=== PATIENT | female | born 2000 | race Caucasian/White ===

== ENCOUNTER 2022-12-28 02:34 | Inpatient (IN) | payer OTHER ==
[~2022-12-28] VITALS: Ht 160 cm; Wt 92.7 kg
[2022-12-28] VITALS (32 sets, daily range): BP systolic 106–142; BP diastolic 52–92; PULSE 75–123; TEMP 98.3–99.8
[~2022-12-28 02:34] MED LIST: ASPIRIN 81M81 MG/TA2 PO; PRENATAL
--- NOTE | 2022-12-28 02:35 | NUR ---
PT AMBULATED TO LR4 WITH SPOUSE. PT COMPLAINT OF SROM. AMNIOTRACE POSITIVE. SROM AT 0030. THE PATIENT STATES THAT SHE WAS NOT HAVING ANY CONTRACTIONS PRIOR TO HER WATER BREAKING. SHE DENIES VAGINAL BLEEDING. PATIENT CHANGED INTO CLEAN GOWN, VOIDED AND PLACED ON EFM AT THIS TIME. NOTIFIED PHYSICIAN OF THE PATIENTS ARRIVAL, SEE PHYSICIAN NOTIFICATION. CATEGORY 1 TRACING OF HEART TONES. CONTRACTIONS EVERY 4-6 MINUTES ON THE MONITOR. ORDERS FOR ADMISSION RECEIVED. DISCUSSED PLAN OF CARE WITH PATIENT WHO VERBALIZED UNDERSTANDING. CONSENTS SIGNED, IV PLACED, LABS DRAWN AND ADMISSION COMPLETED. NO OTHER CONCERNS WITH THE PATIENT AT PRESENT TIME.
[2022-12-28 04:01] LABS: BASO % 0.3 % (0.0-2.0); EOS # 0.1 K/mm3 (0.0-0.7); EOS % 1.2 % (0.0-4.0); GRAN # 7.2 K/mm3 (1.4-6.5); GRAN % 64.2 % (42.2-75.2); HEMATOCRIT 38.2 % (37.0-47.0); HEMOGLOBIN 12.9 g/dl (12.5-16.0); LYMPH % 26.5 % (20.0-51.0); MEAN CELL VOLUME 81 fl (80.0-100.0); MEAN CORPUSCULAR HEMOGLOBIN 27 pg (27-31); MEAN CORPUSCULAR HGB CONC 34 g/dl (33.0-37.0); MONO # 0.8 K/mm3 (0.1-0.6); PLATELET COUNT 195 K/mm3 (130-400); RED BLOOD COUNT 4.72 M/mm3 (4.10-5.30); REDCELL DISTRIBUTION WIDTH-CV 16.1 % (11.5-14.5)
--- NOTE | 2022-12-28 05:21 | NUR ---
EPIDURAL PLACEMENT BY JOY RACHEL. PATIENT ASSISTED TO SITTING POSITION WITH SUNI COLLADO. SINGLE SHOT AT 0521. PATIENT TOLERATED PROCEDURE. REPOSITIONED TO WEDGE RIGHT.
--- NOTE | 2022-12-28 08:40 | NUR ---
0840 DR. AMIN IN ROOM FOR SVE. PT COMPLETE 0 STATION AT THIS TIME. ORDER TO BEGIN PUSHING. 0843 CHAUHAN REMOVED, ROOM SET FOR DELIVERY. 0931 DR. AMIN, NURSERY, CHARGE NURSE IN ROOM FOR DELIVERY. [address] MALE [address] DR. AMIN.INFANT PLACED ON MATERNAL ABDOMEN AND CARE ASSUMED BY NURSERY RN. [address] AMIN. PT TOLERATED WELL. SMALL AMOUNT OF FREE FLOW NOTED. FUNDAL MASSAGE STARTED, UTERUS BOGGY BUT FIRMED UP WITH PRESSURE. FLOW STOPPED. CLOT EXPELLED. LOCHIA WNL. VS STABLE. DR. AMIN BEGAN REPAIRING 2ND DEGREE LACERATION AT THIS TIME. PT TOLERATED WELL. 0940 ROOM PUT BACK TOGETHER, PT COMFORTABLE IN BED. FUNDUS FIRM AT U. VS STABLE. PT REQUEST SHEET COVERAGE INSTEAD OF WARM BLANKET.
--- NOTE | 2022-12-28 12:25 | NUR ---
1225 MOVED PT TO ROOM, LIGHT BLOOD FLOW NOTED WHEN REMOVING PAD. DR. AMIN NOTIFIED WITH ORDER FOR RECTAL CYTOTEC GIVEN. PT CHANGED INTO CLEAN GOWN, PAD, PANTIES. BATHROOM SET UP. LEFT LEG STILL SLIGHTLY NUMB, PT TOLERATED WELL.
[2022-12-29 01:45] VITALS: BP 128/66; PULSE 88; TEMP 97.9
[2022-12-29 07:00] VITALS: BP 99/56; PULSE 79; TEMP 97.6
[2022-12-29] MEDS ORDERED: IBU800 M1 PO (08:57)
--- NOTE | 2022-12-29 09:35 | NUR ---
Initial visit attempt; Consult in progress, [employer] Supervisor left card offering congratulations and God's blessings for the of their son and information regarding the availability of Spirit[facility] Care at our [facility].
== END 2022-12-29 14:00 | disposition home or self-care (01) | DRG 807 ==
LOC: LDRO 02:34 → OB 03:17 → LDR 03:17 → OB 12:40
PROVIDERS: Obstetrics & Gynecology; ADMIT Obstetrics & Gynecology
PROC: 10E0XZZ Delivery of Products of Conception, External Approach (ICD-10-PCS; principal; 2022-12-28)
PROC: 0KQM0ZZ Repair Perineum Muscle, Open Approach (ICD-10-PCS; 2022-12-28)
DX: O42.92 Full-term premature rupture of membranes, unspecified as to length of time between rupture and onset of labor (principal); Z37.0 Single live birth; Z3A.39 39 weeks gestation of pregnancy; O70.1 Second degree perineal laceration during delivery; O36.63X0 Maternal care for excessive fetal growth, third trimester, not applicable or unspecified; O99.214 Obesity complicating childbirth; O26.893 Other specified pregnancy related conditions, third trimester; O13.4 Gestational [pregnancy-induced] hypertension without significant proteinuria, complicating childbirth; Z67.41 Type O blood, Rh negative
CPT/HCPCS: J2210; J2590; J2791; J2795; J7120